=== PATIENT | male | born 1955 | race Caucasian/White ===

== ENCOUNTER → 2016-04-28 | Outpatient (CLI) | payer OTHER ==
--- NOTE | 2016-04-28 09:47 | KCIC ---
PROCEDURE MR of the left shoulder HISTORY Left shoulder pain. Injury March 12, 2016. COMPARISON None TECHNIQUE Standard multiplanar sequences FINDINGS There is luss-na-wlelahwz motion degradation. Full-thickness tear of the supraspinatus tendon and infraspinatus tendon, complete or nearly complete. Retraction measures less than 1 centimeter. Moderate rotator cuff muscle volume loss with mild fatty infiltration. Mild fluid in the subdeltoid bursa. Partial subscapularis tendon tear. No evidence of a labrum tear. No paralabral cyst. Trace fluid in the glenohumeral joint. The biceps tendon is flattened and deformed compatible with tendinosis partial tearing. There is a longitudinal split of the tendon as well. Tendon is subluxed medially, perched and flattened over the lesser tuberosity. There is no evidence of a bone lesion. No acute fracture. No acute soft tissue injury. IMPRESSION 1. Complete or near complete full-thickness tear of the supraspinatus and infraspinatus tendon. Partial subscapularis tendon tear. 2. Partial tearing of the biceps tendon including a longitudinal split, with medial subluxation. Electronically signed by: Jose Elena MD (Apr 28, 2016 09:45:31)
== END | disposition home or self-care (01) ==
LOC: KCIC MRI 08:46
PROVIDERS: ATTEND Orthopaedic Surgery Sports Medicine
DX: M75.122 Complete rotator cuff tear or rupture of left shoulder, not specified as traumatic (principal); S46.812A Strain of other muscles, fascia and tendons at shoulder and upper arm level, left arm, initial encounter; S43.082A Other subluxation of left shoulder joint, initial encounter; S46.212A Strain of muscle, fascia and tendon of other parts of biceps, left arm, initial encounter; M62.89 Other specified disorders of muscle; X58.XXXA Exposure to other specified factors, initial encounter; Y93.89 Activity, other specified; Y92.89 Other specified places as the place of occurrence of the external cause; Y99.8 Other external cause status
CPT/HCPCS: 73221

== ENCOUNTER → 2018-09-17 | Outpatient (CLI) | payer OTHER ==
[2016-05-21 17:06] VITALS: BP 157/76
[~2018-09-17] MED LIST: BEET EXTRACT PO; CONTRAST GIVEN. MC PRN; DOCU-109 PO; IOHEXOL 240 MG/ML 50ML VIAL. PO ONE; IOHEXOL 300 MG/ML 100ML VIAL. IV ONE; MULT-246 PO; ONDA4TAB10 SL; OXYC1TAB15 PO; [UNRECOGNIZED DRUG - CODE] IJ
--- NOTE | 2018-09-17 11:52 | RAD ---
CT of the chest, abdomen and pelvis with contrast, 09/17/2018: HISTORY: Colonic mass Multidetector CT imaging was performed following oral and IV administration of contrast. The thoracic aorta is of normal caliber. There are several small mediastinal lymph nodes without evidence of pathologic enlargement. No hilar adenopathy is seen. There are a few scattered linear opacities in the lungs compatible with scars. A calcified nodule in the left upper lobe is probably an old granuloma. No pulmonary consolidation is seen. There is no evidence of pleural fluid. No hepatic abnormality is detected. The gallbladder is unremarkable. No pancreatic abnormality is seen. The spleen is of normal size. There is mild left renal cortical scarring. A tiny subcentimeter low-density lesion in the lateral aspect of the left kidney is too small to definitively characterize but is probably a cyst. The kidneys show no evidence of obstruction. No adrenal abnormality is detected. There is mild aortic calcific plaquing without evidence of aneurysm. No abdominal or pelvic adenopathy is seen. The prostate gland is mildly enlarged measuring 5.5 cm in width. Mild diffuse bladder wall thickening is probably secondary to chronic bladder outlet obstruction. The bowel loops are not dilated. The colon contains stool and is collapsed at some levels. The patient's suspected colonic mass is not visualized. No free fluid or free air is evident in the abdomen or pelvis. There are moderate scattered hypertrophic degenerative changes in the spine with bony bridging at multiple levels. IMPRESSION: 1. Mild nonspecific prostatic enlargement. 2. No CT evidence of metastatic disease in the chest, abdomen or pelvis. PQRS Compliance Statement: One or more of the following individualized dose reduction techniques were utilized for this examination: 1. Automated exposure control 2. Adjustment of the mA and/or kV according to patient size 3. Use of iterative reconstruction technique Electronically signed by: Avi Pizarro MD (09/17/2018 11:49 AM) [facility]
== END | disposition home or self-care (01) ==
LOC: CT 08:20
PROVIDERS: ATTEND Internal Medicine Hematology & Oncology
DX: J98.59 Other diseases of mediastinum, not elsewhere classified (principal); N40.0 Benign prostatic hyperplasia without lower urinary tract symptoms; R91.8 Other nonspecific abnormal finding of lung field; R91.1 Solitary pulmonary nodule; M89.38 Hypertrophy of bone, other site
CPT/HCPCS: 71260; 74177; Q9966; Q9967

== ENCOUNTER → 2018-09-22 | Outpatient (CLI) | payer BC ==
[2016-05-21 17:06] VITALS: BP 157/76
[~2018-09-22] MED LIST changes: -CONTRAST GIVEN. MC PRN; -IOHEXOL 240 MG/ML 50ML VIAL. PO ONE; -IOHEXOL 300 MG/ML 100ML VIAL. IV ONE
[2018-09-22 13:37] LABS: BASO # 0.1 x10^3/uL (0.0-0.2); BASO % 1 % (0-3); EOS # 0.3 x10^3/uL (0.0-0.7); EOS % 4 % (0-3); HEMATOCRIT 40.6 % (39.0-53.0); LYMPH # 1.8 x10^3/uL (1.0-4.8); LYMPH % 25 % (24-48); MEAN CORPUSCULAR HEMOGLOBIN 34 pg (25-35); MEAN CORPUSCULAR HGB CONC 35 g/dL (31-37); MEAN CORPUSCULAR VOLUME 97 fL (79-100); MONO # 0.5 x10^3/uL (0.0-1.1); MONO % 7 % (0-9); NEUT # 4.6 x10^3uL (1.8-7.7); NEUT % 62 % (31-73); PLATELET COUNT 187 x10^3/uL (140-400); RED CELL DISTRIBUTION WIDTH 13.2 % (11.5-14.5); WHITE BLOOD COUNT 7.3 x10^3/uL (4.0-11.0)
[2018-09-22 13:55] LABS: ALBUMIN 3.3 g/dL (3.4-5.0); CALCIUM 8.5 mg/dL (8.5-10.1); CREATININE 1.1 mg/dL (0.7-1.3); GFR 67.6
--- NOTE | 2018-09-23 17:19 | NUR ---
FAXED PRE - OP TEST REPORTS TO 'S OFFICE FOR REVIEW AT 2718 09/23/2018 AND RECEIVED TRANSMITTAL CONFIRMATION.
== END | disposition home or self-care (01) ==
LOC: SURGPAT 13:04
PROVIDERS: ATTEND Surgery
DX: Z01.818 Encounter for other preprocedural examination (principal); C18.9 Malignant neoplasm of colon, unspecified; Z88.8 Allergy status to other drugs, medicaments and biological substances
CPT/HCPCS: 36415; 80048; 82040; 85025

== ENCOUNTER → 2018-12-13 | Outpatient (CLI) | payer BC ==
[2018-10-04 11:00] VITALS: BP 142/72
--- NOTE | 2018-12-13 11:14 | EKG ---
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 NON-SPECIFIC ST/T CHANGES Electronically Signed On 12-13-2018 13:44:20 CDT by Syed Bourne MD
== END | disposition home or self-care (01) ==
LOC: EKG 10:42
PROVIDERS: ATTEND Nurse Practitioner Adult Health
DX: C18.6 Malignant neoplasm of descending colon (principal); I49.9 Cardiac arrhythmia, unspecified
CPT/HCPCS: 93005

== ENCOUNTER → 2019-01-17 | Outpatient (CLI) | payer BC ==
[2018-10-04 11:00] VITALS: BP 142/72
--- NOTE | 2019-01-18 09:20 | CARD ---
MR#: [id number] Date of Study: 01/17/2019 Ordering Physician: PAPA RAI, Referring Physician: PAPA RAI Tech: Veena Nieves RDCS APPROVED REPORT EXAM: Two-dimensional and M-mode echocardiogram with Doppler and color Doppler. Other Information Quality : Good INDICATION Paroxysmal Atrial Fibrillation 2D DIMENSIONS RVDd2.6 (2.9-3.5cm)Left Atrium(2D)4.3 (1.6-4.0cm) IVSd1.3 (0.7-1.1cm)Aortic Root(2D)3.1 (2.0-3.7cm) LVDd5.5 (3.9-5.9cm)LVOT Diameter2.1 (1.8-2.4cm) PWd1.3 (0.7-1.1cm)LVDs3.2 (2.5-4.0cm) FS (%) 30.0 %SV106.2 ml LVEF(%)60.0 (>50%) Aortic Valve AoV Peak Jay Jay.157.2cm/sAoV VTI28.9cm AO Peak GR.9.9mmHgLVOT Peak Jay Jay.152.5cm/s AO Mean GR.5mmHgAVA (VMAX)3.41cm2 URSZULA (VTI)3.60cm2 Mitral Valve MV E Gaevsljn620.7cm/sMV DECEL IPDF754df MV A Okbgrkdh00.6cm/sE/A Ratio2.0 Tricuspid Valve TR P. Vkzyaewa882he/sRAP AFKOFXYN9svSr TR Peak Gr.81myBiXIYP72znPy Pulmonary Vein S1 Fjjnmnhp83.9cm/sD2 Dperpojc51.9cm/s LEFT VENTRICLE The left ventricle is normal size. There is mild concentric left ventricular hypertrophy. The left ve ntricular systolic function is normal. The Ejection Fraction is 55-60%. There is normal LV segmental wall motion. Transmitral Doppler flow pattern is Grade II-pseudonormal filling dynamics. RIGHT VENTRICLE The right ventricle is normal size. The right ventricular systolic function is normal. ATRIA The left atrium is mildly dilated. The right atrium size is normal. The interatrial septum is intact with no evidence for an atrial septal defect or patent foramen ovale as noted on 2-D or Doppler imagi ng. AORTIC VALVE The aortic valve is calcified but opens well. Doppler and Color Flow revealed no significant aortic r egurgitation. There is no significant aortic valvular stenosis. MITRAL VALVE The mitral valve is calcified but opens well. There is no evidence of mitral valve prolapse. There is no mitral valve stenosis. Doppler and Color-flow revealed mild mitral regurgitation. TRICUSPID VALVE The tricuspid valve is normal in structure and function. Doppler and Color Flow revealed trace tricus pid regurgitation. There is moderate pulmonary hypertension. The PA pressure was estimated at 47 mmHg . There is no tricuspid valve stenosis. PULMONIC VALVE The pulmonic valve is not well visualized. Doppler and Color Flow revealed trace pulmonic valvular re gurgitation. There is no pulmonic valvular stenosis. GREAT VESSELS The aortic root is normal in size. The ascending aorta is normal in size. The IVC is normal in size a nd collapses >50% with inspiration. PERICARDIAL EFFUSION There is no evidence of significant pericardial effusion. Critical Notification Critical Value: No <Conclusion> The left ventricular systolic function is normal. The Ejection Fraction is 55-60%. There is normal LV segmental wall motion. Transmitral Doppler flow pattern is Grade II-pseudonormal filling dynamics. Mild mitral regurgitation. Trace tricuspid regurgitation. The PA pressure was estimated at 47 mmHg. There is no evidence of significant pericardial effusion. Signed by : Papa Rai, Electronically Approved : 01/17/2019 13:56:20
== END | disposition home or self-care (01) ==
LOC: ECHO 11:36
PROVIDERS: ATTEND Internal Medicine Cardiovascular Disease
DX: I08.0 Rheumatic disorders of both mitral and aortic valves (principal); I48.0 Paroxysmal atrial fibrillation; I27.20 Pulmonary hypertension, unspecified
CPT/HCPCS: 93306

== ENCOUNTER → 2019-08-29 | Outpatient (CLI) | payer OTHER ==
[2018-10-04 11:00] VITALS: BP 142/72
[~2019-08-29] MED LIST changes: +CONTRAST GIVEN. MC PRN; +IOHEXOL 240 MG/ML 50ML VIAL. PO ONE; +IOHEXOL 300 MG/ML 100ML VIAL. IV ONE
--- NOTE | 2019-08-29 14:35 | RAD ---
Study: CT chest, abdomen, and pelvis with intravenous contrast Indication: Malignant neoplasm of the descending colon Comparison: CT chest abdomen pelvis 09/17/2018 Technique: Helical CT imaging performed of the chest, abdomen, and pelvis after the intravenous administration of 75 mL Omnipaque 300 intravenous contrast. Sagittal and coronal reformats were obtained. One or more of the following individualized dose reduction techniques were utilized for this examination: 1. Automated exposure control 2. Adjustment of the mA and/or kV according to patient size 3. Use of iterative reconstruction technique. Findings: CHEST: Thyroid gland and thoracic inlet: Thyroid gland is normal. No thoracic inlet lymphadenopathy. Heart and great vessels: Heart is normal in size. No pericardial effusion. Thoracic aorta is normal in caliber. Great vessels are patent. Central pulmonary arteries are clear. Mediastinum and sandra: There are a few prominent mediastinal lymph nodes. A low right paratracheal lymph node measures 1 cm short axis, unchanged. A higher right paratracheal and 1.2 cm short axis, previously 1.0 cm short axis. Other AP window, periaortic, and subcarinal lymph nodes are unchanged. Lungs and pleura: Calcified granuloma in the left upper lobe is unchanged. The lungs are otherwise clear. There is no suspicious pulmonary nodule. No pleural effusion. Chest wall and axillae: No axillary lymphadenopathy. Chest wall is unremarkable. ABDOMEN AND PELVIS: Liver: The liver is normal in size. There is no focal liver lesion. Portal, superior mesenteric, and splenic veins are patent. Gallbladder/Biliary Tree: Normal. Pancreas: Normal. Spleen: Normal. Adrenal Glands: Normal. Kidneys/Ureters/Bladder: Kidneys are normal in size. No hydronephrosis. A cortical defect in the mid left kidney is unchanged. Ureters and bladder are normal. Reproductive Organs: Prostate gland is unchanged. Stomach, small bowel, and colon: There is new suture material in the proximal descending colon. Colon is otherwise normal in appearance. The stomach, small bowel, and appendix are normal. Vasculature: Abdominal aorta is normal in caliber. Minimal calcified aortoiliac atherosclerosis. Lymph Nodes: No lymphadenopathy. Peritoneum and retroperitoneum: No free fluid or free air. MUSCULOSKELETAL: Bones and soft tissue: No acute fracture or suspicious osseous lesion. There is an old left lateral 10th rib fracture. There are bridging syndesmophytes or osteophytes throughout the thoracic spine. Mild degenerative joint disease of the hips. Impression: No definite evidence of metastatic disease in the chest, abdomen, or pelvis. A few prominent mediastinal lymph nodes are similar to prior exam and nonspecific. Electronically signed by: Cara Parrish MD (08/29/2019 2:32 PM) [id number]
== END | disposition home or self-care (01) ==
LOC: CT 10:19
PROVIDERS: ATTEND Internal Medicine Hematology & Oncology
DX: C18.6 Malignant neoplasm of descending colon (principal); J84.10 Pulmonary fibrosis, unspecified; I70.0 Atherosclerosis of aorta; M25.78 Osteophyte, vertebrae; M16.0 Bilateral primary osteoarthritis of hip; Z88.8 Allergy status to other drugs, medicaments and biological substances; Z79.01 Long term (current) use of anticoagulants; Z92.21 Personal history of antineoplastic chemotherapy
CPT/HCPCS: 71260; 74177; Q9966; Q9967

== ENCOUNTER → 2019-09-16 | Outpatient (CLI) | payer OTHER ==
[2018-10-04 11:00] VITALS: BP 142/72
[~2019-09-16] MED LIST changes: +APIX2.5T PO; -CONTRAST GIVEN. MC PRN; +FLEC100T PO; -IOHEXOL 240 MG/ML 50ML VIAL. PO ONE; -IOHEXOL 300 MG/ML 100ML VIAL. IV ONE; +METO25TA4 PO
== END | disposition home or self-care (01) ==
LOC: LAB 14:35
PROVIDERS: ATTEND Internal Medicine Cardiovascular Disease
DX: Z01.818 Encounter for other preprocedural examination (principal); Z11.59 Encounter for screening for other viral diseases; I48.0 Paroxysmal atrial fibrillation
CPT/HCPCS: C9803; U0003; 36415

== ENCOUNTER 2019-09-21 11:16 | Day surgery (SDC) | payer OTHER ==
[~2019-09-21 11:16] MED LIST changes: +BENZOCAINE ONE 20% MUCOSAL SPRAY.; +HYDROmorphone 2 MG/ML VIAL IV PRN; +IV RINGERS,LACTATED 1000ML 1,000 ML IV SCH; +LIDOCAINE 1% PF 2 ML VIAL. ID PRN; +LIDOCAINE 2% TOPICAL JELLY 30GM TUBE. TP ONE; +LIDOCAINE 2% VISCOUS 15 ML SOLUTION. ONE; +MORPHINE SULFATE 2 MG/ML VIAL. IV PRN; +PROCHLORPERAZINE 10 MG/2 ML VIAL. IV PRN; +fentaNYL PF VIAL 100 MCG/2 ML VIAL IV PRN
--- NOTE | 2019-09-21 11:43 | EKG ---
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 Electronically Signed On 09-23-2019 15:24:44 CDT by Chris Geronimo
[2019-09-21 12:07] LABS: HEMOGLOBIN 15.8 g/dL (13.0-17.5)
[2019-09-21 12:17] LABS: CALCIUM 8.6 mg/dL (8.5-10.1); CREATININE 1.3 mg/dL (0.7-1.3); GFR 55.6; POTASSIUM 4.1 mmol/L (3.5-5.1)
[2019-09-21 12:22] LABS: PROTHROMBIN TIME PATIENT 14.5 SEC (11.7-14.0)
--- NOTE | 2019-09-21 13:07 | EKG ---
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 Electronically Signed On 09-26-2019 16:39:58 CDT by Chris Geronimo
[2019-09-21 13:20] VITALS: BP 135/75
--- NOTE | 2019-09-21 15:48 | PDOC4 ---
Procedure Note Procedure: External cardioversion Indications: Atrial fibrillation Complications: None Procedural Details: Informed consent was obtained from patient. Anesthesiology team gave intravenous propofol to patient for deep sedation. He was then administered 200 J of synchronized biphasic DC current with successful conversion of rhythm from atrial fibrillation to sinus rhythm. He was hemodynamically stable without any neurological deficits at the end of procedure. He tolerated the procedure well. Conclusions: Successful external cardioversion of atrial fibrillation to sinus rhythm. PAPA RAI MD Sep 21, 2019 15:48
== END 2019-09-21 13:40 ==
LOC: SURG 11:16
PROVIDERS: ATTEND Internal Medicine Cardiovascular Disease
DX: I48.91 Unspecified atrial fibrillation (principal); E66.01 Morbid (severe) obesity due to excess calories; Z68.41 Body mass index [BMI] 40.0-44.9, adult; Z85.038 Personal history of other malignant neoplasm of large intestine; Z90.49 Acquired absence of other specified parts of digestive tract; Z98.42 Cataract extraction status, left eye; Z98.41 Cataract extraction status, right eye; Z72.89 Other problems related to lifestyle; Z96.1 Presence of intraocular lens
CPT/HCPCS: 36415; 80048; 85014; 85018; 85610; 92960; 93005

== ENCOUNTER → 2019-11-04 | Outpatient (CLI) | payer OTHER ==
[~2019-11-04] MED LIST changes: +AMIO200T4 PO; -BENZOCAINE ONE 20% MUCOSAL SPRAY.; -HYDROmorphone 2 MG/ML VIAL IV PRN; -IV RINGERS,LACTATED 1000ML 1,000 ML IV SCH; -LIDOCAINE 1% PF 2 ML VIAL. ID PRN; -LIDOCAINE 2% TOPICAL JELLY 30GM TUBE. TP ONE; -LIDOCAINE 2% VISCOUS 15 ML SOLUTION. ONE; -MORPHINE SULFATE 2 MG/ML VIAL. IV PRN; -PROCHLORPERAZINE 10 MG/2 ML VIAL. IV PRN; -fentaNYL PF VIAL 100 MCG/2 ML VIAL IV PRN
== END | disposition home or self-care (01) ==
LOC: LAB 14:31
PROVIDERS: ATTEND Internal Medicine Cardiovascular Disease
DX: Z01.818 Encounter for other preprocedural examination (principal); Z11.59 Encounter for screening for other viral diseases; I48.0 Paroxysmal atrial fibrillation
CPT/HCPCS: C9803; U0003

== ENCOUNTER 2019-11-07 13:49 | Day surgery (SDC) | payer OTHER ==
[~2019-11-07 13:49] MED LIST changes: +IV RINGERS,LACTATED 1000ML 1,000 ML IV SCH
--- NOTE | 2019-11-07 14:18 | EKG ---
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
[2019-11-07 15:08] LABS: HEMATOCRIT 45.9 % (39.0-53.0); RED BLOOD COUNT 4.67 x10^6/uL (4.30-5.70); RED CELL DISTRIBUTION WIDTH 14.1 % (11.5-14.5); WHITE BLOOD COUNT 7.2 x10^3/uL (4.0-11.0)
[2019-11-07 15:19] LABS: PROTHROMBIN TIME PATIENT 15.1 SEC (11.7-14.0)
[2019-11-07 15:23] LABS: CALCIUM 8.7 mg/dL (8.5-10.1); CREATININE 1.2 mg/dL (0.7-1.3); POTASSIUM 4.5 mmol/L (3.5-5.1)
--- NOTE | 2019-11-07 15:25 | PDOC4 ---
Procedure Note Procedure: External cardioversion Indications: Atrial fibrillation Complications: None Procedural Details: An informed consent was obtained from patient. Patient was given intravenous propofol for deep sedation by anesthesiology team. He was then administered 200 J of synchronized biphasic DC current with successful conversion of atrial fibrillation to sinus rhythm. He was hemodynamically stable without any neurological deficits at the end of procedure. He tolerated the procedure well. Conclusions: Successful external cardioversion of atrial fibrillation to sinus rhythm. PAPA RAI MD Nov 07, 2019 15:25
--- NOTE | 2019-11-07 15:49 | EKG ---
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
[2019-11-07 15:55] VITALS: BP 143/73
== END 2019-11-07 16:10 | disposition home or self-care (01) ==
LOC: SURG 13:49
PROVIDERS: ATTEND Internal Medicine Cardiovascular Disease
DX: I48.0 Paroxysmal atrial fibrillation (principal); C18.9 Malignant neoplasm of colon, unspecified; Z79.82 Long term (current) use of aspirin; Z79.899 Other long term (current) drug therapy; Z98.890 Other specified postprocedural states
CPT/HCPCS: 36415; 80048; 85027; 85610; 92960; 93005

== ENCOUNTER → 2019-11-21 | Outpatient (CLI) | payer OTHER ==
[2019-11-07 15:55] VITALS: BP 143/73
[~2019-11-21] MED LIST changes: -IV RINGERS,LACTATED 1000ML 1,000 ML IV SCH
--- NOTE | 2019-11-21 16:48 | RAD ---
MR#: [id number] Date of Study: 11/21/2019 Ordering Physician: PAPA RAI, Referring Physician: PAPA RAI, Tech: Vanessa Pereyra RDMS, CHRISTIANO, RTR APPROVED REPORT Patient Location : OUT-PATIENT Indications Lower Extremity Edema : Bilateral Greater Saphenous Veins (GSV) Significant venous relux noted in the LEFT GSV at the following levels : Superficial Femoral Junction , Proximal Thigh, Mid Thigh, Distal Thigh, Proximal Calf, Mid Calf, Distal Calf Findings Grayscale images of the bilateral saphenofemoral junctions are grossly unremarkable. The right great saphenous vein measures approximately 4.6 mm and has no significant reflux. The left great saphenous vein measures approximately 4.9 mm and has a maximum reflux time of 2.1 seco nds. The bilateral lesser saphenous veins did not show any evidence of reflux. Critical Notification Critical Value: No <Conclusion> 1. Positive for reflux in the left great saphenous vein. Signed by : Syed Bourne, Electronically Approved : 11/21/2019 16:47:59
== END | disposition home or self-care (01) ==
LOC: US 13:20
PROVIDERS: ATTEND Internal Medicine Cardiovascular Disease
DX: I87.2 Venous insufficiency (chronic) (peripheral) (principal); R60.9 Edema, unspecified; I48.0 Paroxysmal atrial fibrillation; Z68.41 Body mass index [BMI] 40.0-44.9, adult
CPT/HCPCS: 93970

== ENCOUNTER → 2020-08-08 | Outpatient (CLI) | payer OTHER ==
[~2020-08-08] MED LIST changes: -AMIO200T4 PO; +AMIO200T6 PO; +IOHEXOL 240 MG/ML 50ML VIAL. PO ONE; +IOHEXOL 300 MG/ML 100ML VIAL. IV ONE
--- NOTE | 2020-08-08 11:01 | RAD ---
CT CHEST+ABD+PELVIS W Clinical Indication: Colon cancer COMPARISON: 08/29/2019 TECHNIQUE: Multiple contiguous axial images were obtained throughout the chest, abdomen, and pelvis with the use of IV contrast. Axial images were reformatted into coronal and sagittal planes. 75 mL Omnipaque 300 was administered. One or more of the following dose reduction techniques were utilized: Automated exp osure control (AEC), Adjustment of mA and/or kV according to patient size, Use of iterative reconstru ction technique such as ASiR, CT scan done according to ALARA and image gently/image wisely. Findings: The thyroid is symmetric. New mediastinal and hilar lymphadenopathy, for example right lower paratrac heal lymph node measuring 1.8 cm previously measured 0.8 cm (series 2 image 27) The thoracic aorta diameter is normal. The cardiac size is normal. Left atrial appendage ligation dev ice. There is no pericardial effusion. The central airways are patent. Left lung subsegmental and relaxation atelectasis. Calcified pulmonary granulomas. Moderate to large left and trace right pleural effusions. There is no pneumothorax. The liver, gallbladder, spleen, pancreas, and adrenal glands are unremarkable. The kidneys are unrem arkable. There is no significant mesenteric or retroperitoneal adenopathy identified. There is no e vidence of free intraperitoneal fluid or pneumoperitoneum. Visualized portions of the bowel are kurt sly unremarkable. Mild aortoiliac atherosclerotic disease Bladder is decompressed. There is no significant pelvic ascites. No significant iliac or inguinal a denopathy is identified. Degenerative changes of the spine. 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 No aggressive lytic or blastic osseous lesions. Small fat-containi ng right inguinal hernia. IMPRESSION: 1. New mediastinal and hilar lymphadenopathy, concerning for metastatic disease or lymphoproliferativ e disorder. 2. Moderate to large left pleural effusion. Malignant effusion is not excluded. Trace right pleural f luid. Electronically signed by: Nathan Meyer MD (08/08/2020 10:59 AM) [id number]
== END ==
LOC: CT 09:52
PROVIDERS: ATTEND Internal Medicine Hematology & Oncology
DX: C18.6 Malignant neoplasm of descending colon (principal); J98.11 Atelectasis; J90 Pleural effusion, not elsewhere classified
CPT/HCPCS: 71260; 74177; Q9966; Q9967

== ENCOUNTER → 2021-03-29 | Outpatient (CLI) | payer OTHER ==
[~2021-03-29] MED LIST changes: +AMIO200T53 PO; -AMIO200T6 PO; -IOHEXOL 240 MG/ML 50ML VIAL. PO ONE; -IOHEXOL 300 MG/ML 100ML VIAL. IV ONE
--- NOTE | 2021-03-29 17:42 | CARD ---
MR#: [id number] Date of Study: 03/29/2021 Ordering Physician: PAPA RAI, Referring Physician: PAPA RAI, Tech: Vanessa Sepulveda, [facility] APPROVED REPORT EXAM: Two-dimensional and M-mode echocardiogram with Doppler and color Doppler. Other Information Quality : AverageHR: 61bpm INDICATION Atrial Fibrillation 2D DIMENSIONS Left Atrium(2D)3.7 (1.6-4.0cm)IVSd1.2 (0.7-1.1cm) Aortic Root(2D)3.2 (2.0-3.7cm)LVDd5.9 (3.9-5.9cm) LVOT Diameter2.1 (1.8-2.4cm)PWd1.1 (0.7-1.1cm) LVDs3.4 (2.5-4.0cm)FS (%) 42.9 % SV127.2 mlLVEF(%)73.3 (>50%) Aortic Valve AoV Peak Jay Jay.171.1cm/sAoV VTI32.7cm AO Peak GR.11.7mmHgLVOT Peak Jay Jay.156.9cm/s LVOT VTI 32.80cmAO Mean GR.6mmHg URSZULA (VMAX)2.79de3DDZ (VTI)3.59cm2 Mitral Valve MV E Zctgooxu185.8cm/sMV DECEL RKLG706dh MV E Mean Gr.2mmHgMV KKC12vd MVA (PHT)3.30cm2 TDI E/Lateral E'14.7E/Medial E'20.3 Pulmonary Valve PV Peak Ylzqtqot13.0cm/sPV Peak Grad.4mmHg Tricuspid Valve TR P. Awdzehpm356gh/sRAP PMXVNYEZ2tiRi TR Peak Gr.77oiBwMMZW27ohZf LEFT VENTRICLE The Left Ventricle is borderline dilated. There is mild concentric left ventricular hypertrophy. The left ventricular systolic function is normal and the ejection fraction is within normal range. The Ej ection Fraction is 55-60%. There is normal LV segmental wall motion. Tissue Doppler imaging reveals m ild left ventricular diastolic dysfunction. RIGHT VENTRICLE The right ventricle is normal size. There is normal right ventricular wall thickness. The right ventr icular systolic function is normal. ATRIA The left atrium size is normal. The right atrium size is normal. The interatrial septum is intact wit h no evidence for an atrial septal defect or patent foramen ovale as noted on 2-D or Doppler imaging. AORTIC VALVE The aortic valve is thickened but opens well. Doppler and Color Flow revealed no significant aortic r egurgitation. There is no significant aortic valvular stenosis. Calculated aortic valve area is 3.62 cm2 with maximum pressure gradient of 16 mmHg and mean pressure gradient of 7 mmHg. MITRAL VALVE The mitral valve is normal in structure and function. There is no evidence of mitral valve prolapse. There is no mitral valve stenosis. Doppler and Color-flow revealed trace mitral regurgitation. TRICUSPID VALVE The tricuspid valve is normal in structure and function. Doppler and Color Flow revealed trace tricus pid regurgitation with an estimated PAP of 38 mmHg. There is no tricuspid valve stenosis. PULMONIC VALVE Doppler and Color Flow revealed trace pulmonic valvular regurgitation. There is no pulmonic valvular stenosis. GREAT VESSELS The aortic root is normal in size. The IVC is normal in size and collapses >50% with inspiration. PERICARDIAL EFFUSION There is no evidence of significant pericardial effusion. Critical Notification Critical Value: No <Conclusion> The left ventricular systolic function is normal and the ejection fraction is within normal range. Th e Ejection Fraction is 55-60%. There is normal LV segmental wall motion. Signed by : Syed Bourne, Electronically Approved : 03/29/2021 17:41:27
== END ==
LOC: ECHO 14:44
PROVIDERS: ATTEND Internal Medicine Cardiovascular Disease
DX: I51.7 Cardiomegaly (principal); I48.0 Paroxysmal atrial fibrillation
CPT/HCPCS: 93306